=== PATIENT | female | born 1945 ===

== ENCOUNTER 2020-02-07 07:49 | Day surgery (SDC) | payer OTHER ==
[~2020-02-07 07:49] MED LIST: 8 HOUR PAIN RE650 M1 PO; CILOSTAZOL100 MG PO; FOLIC ACID20 MG PO; GABAPENTIN100 M2 PO; MILLIPRED5 MG PO; OMEGA-31000 MG PO; PRILOSEC OTC20 MG PO; VASOTEC10 MG PO
[2020-02-07] MEDS ORDERED: MACROBID 100 M100 MG PO (11:53)
[2020-02-07] MEDS ORDERED: ULTRACET PO (11:54)
== END 2020-02-07 16:50 | disposition home or self-care (01) ==
LOC: CIR.AMB 07:49
PROVIDERS: ATTEND Obstetrics & Gynecology Gynecology
DX: N81.3 Complete uterovaginal prolapse (principal); Z20.828 Contact with and (suspected) exposure to other viral communicable diseases